=== PATIENT | male | born 1965 | race Caucasian/White ===

== ENCOUNTER 2017-10-31 22:25 | Emergency (ER) | payer SELFPAY ==
[2017-10-31] MEDS ORDERED: NORMAL SALINE 1000 ML 1,000 ML IV ONE (22:46)
[2017-10-31] MEDS ORDERED: GLUCAGON,HUMAN RECOMB 1 MG INJ IM PRN (23:04)
[2017-10-31] MEDS ORDERED: NORMAL SALINE 100 ML with INSULIN REGULAR, HUMAN 100 UNIT IV PRN ×2 (23:04)
[2017-10-31] MEDS ORDERED: DEXTROSE 50%-WATER 25 GM/50 ML DISP.SYRIN IV PRN ×2 (23:04)
[2017-10-31] MEDS ORDERED: DEXTROSE 40% GEL 15 GM TUBE PO PRN ×2 (23:04)
--- NOTE | 2017-10-31 23:16 | ER Document Report ---
ED General - General Chief Complaint: High Blood Sugar Stated Complaint: BLOOD SUGAR ISSUES Time Seen by Provider: 10/31/17 22:44 Notes: Patient is a 52-year-old male who presents with complaint of several weeks of symptoms which include increased urination, increased thirst, blurred vision, dizziness, lightheadedness, weakness. He take medications and does not see primary care doctor. His is at bedside and said that she has been trying to get him to come to the doctor some time because of his symptoms. Today she was concerned that he probably has diabetes. She therefore had him test his blood sugar on her glucometer and his blood sugar read high. Patient denies any recent fevers. No recent illnesses. No other complaints at this time. He did vomit 1 or 2 times. - Related Data Allergies/Adverse Reactions: No Known Allergies Allergy (Unverified 10/31/17 22:26) Past Medical History - Social History Smoking Status: Never Smoker Frequency of alcohol use: None Drug Abuse: Marijuana Family History: Reviewed & Not Pertinent Review of Systems - Review of Systems Notes: My Normal Review Basic REVIEW OF SYSTEMS: CONSTITUTIONAL : Denies fever, chills, or sweats. Denies recent illness. EENT: Denies eye, ear, throat, or mouth pain or symptoms. Denies nasal or sinus congestion. CARDIOVASCULAR: Denies chest pain. RESPIRATORY: Denies cough, cold, or chest congestion. Denies shortness of breath, difficulty breathing, or wheezing. GASTROINTESTINAL: Denies abdominal pain. Few episodes of vomiting. GENITOURINARY: Frequent urination. MUSCULOSKELETAL: Denies neck or back pain or joint pain or swelling. SKIN: Denies rash or skin lesions. NEUROLOGICAL: Denies altered mental status or loss of consciousness. Denies weakness or paralysis or loss of use of either side. Some blurred vision. Denies sensory or motor loss. ALL OTHER SYSTEMS REVIEWED AND NEGATIVE. Physical Exam - Vital signs Vitals: Temp Pulse Resp BP Pulse Ox 98.1 F 95 20 167/85 H 92 10/31/17 22:31 10/31/17 22:31 10/31/17 22:31 10/31/17 22:31 10/31/17 22:31 - Notes Notes: General Appearance: Well nourished, alert, cooperative, no acute distress, no obvious discomfort. Well-appearing. Vitals: reviewed, See vital signs table. Head: no swelling or tenderness to the head Eyes: PERRL, EOMI, Conjuctiva clear Mouth: No decreasd moisture Neck: Supple, no neck tenderness, No thyromegaly Lungs: No wheezing, No rales, No rhonci, No accessory muscle use, good air exchange bilaterally. Heart: Normal rate, Regular rythm, No murmur, no rub Abdomen: Normal BS, soft, No rigidity, No abdominal tenderness, No guarding, no rebound, no abdominal masses, no organomegaly Extremities: strength 5/5 in all extremities, good pulses in all extremities, no swelling or tenderness in the extremities, no edema. Skin: warm, dry, appropriate color, no rash Neuro: speech clear, oriented x 3, normal affect, responds appropriately to questions. Cranial nerves II through XII are intact. Distal sensation intact. Patient moves all extremities without difficulty. Course - Re-evaluation Re-evalutation: 11/01/17 03:36 Patient's blood sugars continue to trend down appropriately. Patient would like to see his blood sugar below 300. Patient refused to stay any longer and says his has to go to work in the morning. Patient's is diabetic and does have an Accu-Chek machine. Patient says that he must leave now. Patient says his blurred vision is resolved and he feels much much improved and better. Informed patient that I will place him on metformin but I strongly encourage him return to ER immediately if he has any fevers, body aches , vomiting, weakness, fatigue, recurrent blurred vision, or if he feels unwell. I informed him that since he is leaving for his blood sugars down below 300 he must return to ER immediately if his blood sugar starts to increase again or if it is not returning to below 350 the next 24 hours. Patient and his agree with plan and he will be discharged home as he has requested. Dictation of this chart was performed using voice recognition software; therefore, there may be some unintended grammatical errors. - Vital Signs Vital signs: Temp Pulse Resp BP Pulse Ox 98.1 F 95 20 144/70 H 92 10/31/17 22:31 10/31/17 22:31 11/01/17 01:03 11/01/17 01:03 11/01/17 01:03 - Laboratory Result Diagrams: 10/31/17 23:08 10/31/17 23:08 Laboratory results interpreted by me: 10/31/17 10/31/17 10/31/17 23:08 23:08 23:08 RDW 14.3 H Sodium 122.3 L Potassium 5.4 H Chloride 84 L BUN 31 H Glucose 998 H* POC Glucose Alkaline Phosphatase 183 H Urine Glucose (UA) >=500 H Urine Ketones TRACE H 11/01/17 02:08 RDW Sodium Potassium Chloride BUN Glucose POC Glucose 545 H* Alkaline Phosphatase Urine Glucose (UA) Urine Ketones Discharge - Discharge Clinical Impression: Hyperglycemia due to type 2 diabetes mellitus Qualifiers: Diabetes mellitus terminal operator insulin use: without terminal operator use Qualified Code(s ): E11.65 - Type 2 diabetes mellitus with hyperglycemia Condition: Good Disposition: HOME, SELF-CARE Additional Instructions: You have Diabetes. It is very important that you take the prescribed medication (metformin) as prescribed. please keep a close eye on your blood sugar . If your blood sugar is above 350 routinely you should return to the ER or your primary care doctor for reevaluation and possible medication adjustment. please return to the ER immediately if you have vomiting, muscle cramps, blurred vision , or feel unwell. Please establish yourself with a primary care doctor to help continue manage your diabetes. The Metformin can on rare cases cause you to become acidotic. If you become acidotic you will feel very weak and tired, have muscle aches, and usually have vomiting. Please return to the ER if you have any of those symptoms. Prescriptions: Metformin HCl [Glucophage 500 mg Tablet] 500 mg PO BID #60 tablet
[2017-10-31 23:28] LABS: APPEARANCE,URINE CLEAR; BILIRUBIN,URINE NEGATIVE (NEGATIVE); COLOR,URINE COLORLESS; GLUCOSE, URINE >=500 mg/dL (NEGATIVE); KETONES,URINE TRACE mg/dL (NEGATIVE); LEUKOCYTE ESTERASE,URINE NEGATIVE (NEGATIVE); NITRITE,URINE NEGATIVE (NEGATIVE); PROTEIN,URINE NEGATIVE (NEGATIVE); URINE SPECIFIC GRAVITY 1.029; UROBILINOGEN,URINE NEGATIVE mg/dL (<2.0)
[2017-10-31 23:31] LABS: ABSOLUTE BASOPHILS # (AUTO) 0.1 10^3/uL (0.0-0.2); ABSOLUTE EOSINOPHILS # (AUTO) 0.1 10^3/uL (0.0-0.6); ABSOLUTE LYMPHOCYTES (AUTO) 2.2 10^3/uL (0.5-4.7); ABSOLUTE MONOCYTES (AUTO) 0.9 10^3/uL (0.1-1.4); ABSOLUTE NEUT (AUTO) 6.1 10^3/uL (1.7-8.2); BASOPHILS % (AUTO) 0.8 % (0-2); EOSINOPHILS % (AUTO) 0.9 % (0-6); HEMATOCRIT 42.8 % (37.9-51.0); HEMOGLOBIN 13.8 g/dL (13.5-17.0); LYMPHOCYTES % (AUTO) 23.8 % (13-45); MEAN CORPUSCULAR HEMOGLOBIN 29.5 pg (27.0-33.4); MEAN CORPUSCULAR HGB CONC 32.2 g/dL (32.0-36.0); MEAN CORPUSCULAR VOLUME 92 fl (80-97); MONOCYTES % (AUTO) 9.9 % (3-13); PLATELET COUNT 275 10^3/uL (150-450); RED BLOOD COUNT 4.67 10^6/uL (4.35-5.55); RED CELL DISTRIBUTION WIDTH 14.3 % (11.5-14.0); SEGMENTED NEUTROPHILS % (AUTO) 64.6 % (42-78); TOTAL CELLS COUNTED % (AUTO) 100 %; WHITE BLOOD COUNT 9.4 10^3/uL (4.0-10.5)
[2017-10-31 23:36] LABS: ALANINE AMINOTRANSFERASE 70 U/L (21-72); ALBUMIN 3.8 g/dL (3.5-5.0); ALKALINE PHOSPHATASE 183 U/L (38-126); ANION GAP 11 (5-19); ASPARTATE AMINO TRANSFERASE 30 U/L (17-59); BILIRUBIN,DIRECT 0.3 mg/dL (0.0-0.4); BILIRUBIN,TOTAL 0.4 mg/dL (0.2-1.3); BLOOD UREA NITROGEN 31 mg/dL (7-20); CALCIUM 9.5 mg/dL (8.4-10.2); CARBON DIOXIDE 27 mmol/L (22-30); CHLORIDE 84 mmol/L (98-107); POTASSIUM 5.4 mmol/L (3.6-5.0); SODIUM 122.3 mmol/L (137-145); TOTAL PROTEIN 6.5 g/dL (6.3-8.2)
[2017-10-31 23:48] LABS: GLUCOSE 998 mg/dL (75-110)
[2017-10-31] MEDS ORDERED: INSULIN REG, HUMAN 100 UNIT/ML 3 ML VIAL (PYX) ONE ×2 (23:53→23:57)
[2017-11-01] MEDS ORDERED: INSULIN REG, HUMAN 100 UNIT/ML 3 ML VIAL (PYX) ONE ×2 (00:24→00:26)
[2017-11-01] MEDS ORDERED: NORMAL SALINE 500 ML IV ONE (01:12)
[2017-11-01] MEDS ORDERED: METFORMIN HCL 500 MG TABLET PO ONE (03:32)
[2017-11-01 04:15] VITALS: BP 134/80
== END 2017-11-01 04:14 | disposition home or self-care (01) ==
LOC: ER 22:25
DX: E11.65 Type 2 diabetes mellitus with hyperglycemia (principal)
CPT/HCPCS: 99285; 96360; 96361; 36415; 82962; 85025; 80053; 81001; J7030; J7040

== ENCOUNTER 2017-11-08 23:38 | Inpatient (IN) | payer SELFPAY ==
--- NOTE | 2017-11-08 23:54 | ER Document Report ---
ED General - General Chief Complaint: Chest Pain Stated Complaint: CHEST PAIN Time Seen by Provider: 11/08/17 23:52 Notes: Patient is 52-year-old male who presents with complaints of chest pain. He says been ongoing since this morning. He says the pain is only when he takes a deep breath and is on the left side of his chest. Is always in the same location. Said some cough. He is a smoker. No history of coronary disease. Patient has no past medical history except for recent diagnosis of diabetes. His diagnosis is actually performed by me just over a week ago. At that time he had a blood sugar of 998 had been having symptoms for 3-4 weeks. He was started metformin. His says that they have arrange for a follow-up appointment primary care doctor but has not yet had it. He has been taking the metformin but his says he is also not been eating appropriately. She says his sugars have been ranging from 300 to 500. No recent fevers or infections. No vomiting. No abdominal pain. No other complaints at this time. No recent trauma to the chest wall. No recent leg pain or leg swelling. No recent surgery. TRAVEL OUTSIDE OF THE [place] IN LAST 30 DAYS: No - Related Data Allergies/Adverse Reactions: No Known Allergies Allergy (Unverified 10/31/17 22:26) Past Medical History - Social History Smoking Status: Never Smoker Frequency of alcohol use: None Drug Abuse: None Family History: Reviewed & Not Pertinent Renal/ Medical History: Denies: Hx Peritoneal Dialysis Past Surgical History: Reports: Hx Orthopedic Surgery Review of Systems - Review of Systems Notes: My Normal Review Basic REVIEW OF SYSTEMS: CONSTITUTIONAL : Denies fever, chills, or sweats. Denies recent illness. EENT: Denies eye, ear, throat, or mouth pain or symptoms. Denies nasal or sinus congestion. CARDIOVASCULAR: Focal chest pain over left side of the chest that is pleuritic. RESPIRATORY: Denies cough, cold, or chest congestion. Denies shortness of breath, difficulty breathing, or wheezing. GASTROINTESTINAL: Denies abdominal pain. Denies nausea, vomiting, or diarrhea. Denies constipation. Last BM: MUSCULOSKELETAL: Denies neck or back pain or joint pain or swelling. SKIN: Denies rash or skin lesions. NEUROLOGICAL: Denies altered mental status or loss of consciousness. Denies headache. Denies weakness or paralysis or loss of use of either side. Denies problems with gait or speech. Denies sensory or motor loss. ALL OTHER SYSTEMS REVIEWED AND NEGATIVE. Physical Exam - Notes Notes: General Appearance: Well nourished, alert, cooperative, no acute distress, no obvious discomfort. Well Appearing. Vitals: reviewed, See vital signs table. Head: no swelling or tenderness to the head Eyes: PERRL, EOMI, Conjuctiva clear Mouth: No decreasd moisture Lungs: No wheezing, No rales, No rhonci, No accessory muscle use, good air exchange bilaterally. Heart: Normal rate, Regular rythm, No murmur, no rub Chest wall: No reproducible pain to palpation of chest wall. On exam patient's pain is reproducible with him taking a deep breath. Abdomen: Normal BS, soft, No rigidity, No abdominal tenderness, No guarding, no rebound, no abdominal masses, no organomegaly Extremities: strength 5/5 in all extremities, good pulses in all extremities, no swelling or tenderness in the extremities, no edema. Skin: warm, dry, appropriate color, no rash Neuro: speech clear, oriented x 3, normal affect, responds appropriately to questions. Course - Re-evaluation Re-evalutation: 11/09/17 03:14 Patient's oxygenation has been fluctuating between 87 and 92% while at rest. He is not in any distress. CT scan does show a cavitary lesion with inflammatory changes consistent with pneumonia versus neoplasm versus Mycobacterium type infection versus septic emboli. The CTA did have a poor contrast bolus timing and therefore he cannot fully rule emboli although I think this is probably less likely. I did speak with hospitalist who agrees with the patient. She requested place him on vancomycin and Zosyn. They will continue the workup to see the exact etiology of the patient's lesion on scan. We discussed the line with the patient and his and they are agreeable to it. Dictation of this chart was performed using voice recognition software; therefore, there may be some unintended grammatical errors. - Laboratory Result Diagrams: 11/09/17 00:00 11/09/17 00:00 Laboratory results interpreted by me: 11/09/17 11/09/17 11/09/17 00:00 00:00 02:39 D-Dimer 0.84 H Sodium 131.8 L Potassium 5.1 H Chloride 95 L BUN 23 H Glucose 505 H* POC Glucose 420 H* Alkaline Phosphatase 129 H - EKG Interpretation by Me Additional EKG results interpreted by me: 11/08/17 23:54 EKG is reviewed and interpreted by me. EKG shows normal sinus rhythm with rate of [address] segment elevation or depression. No ischemic T-wave inversions. PA interval, QRS duration, QTc intervals are within normal range. No old EKG available for comparison.
[2017-11-09] MEDS ORDERED: ACETAMINOPHEN 325 MG TABLET PO ONE (00:02)
[2017-11-09] MEDS ORDERED: NORMAL SALINE 1000 ML 1,000 ML IV ONE (00:02)
[2017-11-09 00:18] LABS: ABSOLUTE BASOPHILS # (AUTO) 0.1 10^3/uL (0.0-0.2); ABSOLUTE EOSINOPHILS # (AUTO) 0.2 10^3/uL (0.0-0.6); RED BLOOD COUNT 4.83 10^6/uL (4.35-5.55)
[2017-11-09 00:23] LABS: MEAN CORPUSCULAR VOLUME 88 fl (80-97)
--- NOTE | 2017-11-09 00:25 | RADIOLOGY REPORT (SQ) ---
EXAM DESCRIPTION: CHEST PA/LAT CLINICAL HISTORY: chest pain COMPARISON: None. FINDINGS: Frontal and lateral views of the chest. The cardiomediastinal silhouette has normal size and contour. Bilateral perihilar peribronchial interstitial thickening. Low lung volumes. Leads overlie the chest. No displaced rib fractures identified. Upper abdominal soft tissues are unremarkable. IMPRESSION: 1. Bilateral perihilar peribronchial interstitial thickening. This could be seen with bronchopneumonia, viral bronchitis/bronchiolitis, or reactive airways disease.
[2017-11-09 00:32] LABS: ABSOLUTE LYMPHOCYTES (AUTO) 2.8 10^3/uL (0.5-4.7); ABSOLUTE NEUT (AUTO) 5.3 10^3/uL (1.7-8.2); BASOPHILS % (AUTO) 1.2 % (0-2); EOSINOPHILS % (AUTO) 2.1 % (0-6); HEMATOCRIT 42.6 % (37.9-51.0); HEMOGLOBIN 14.1 g/dL (13.5-17.0); LYMPHOCYTES % (AUTO) 29.7 % (13-45); MEAN CORPUSCULAR HEMOGLOBIN 29.1 pg (27.0-33.4); MONOCYTES % (AUTO) 10.5 % (3-13); PLATELET COUNT 324 10^3/uL (150-450); SEGMENTED NEUTROPHILS % (AUTO) 56.5 % (42-78); TOTAL CELLS COUNTED % (AUTO) 100 %; WHITE BLOOD COUNT 9.4 10^3/uL (4.0-10.5)
[2017-11-09 00:41] LABS: ALANINE AMINOTRANSFERASE 62 U/L (21-72); ALBUMIN 3.7 g/dL (3.5-5.0); ALKALINE PHOSPHATASE 129 U/L (38-126); ANION GAP 11 (5-19); ASPARTATE AMINO TRANSFERASE 32 U/L (17-59); BILIRUBIN,DIRECT 0.4 mg/dL (0.0-0.4); BILIRUBIN,TOTAL 0.4 mg/dL (0.2-1.3); BLOOD UREA NITROGEN 23 mg/dL (7-20); CALCIUM 9.6 mg/dL (8.4-10.2); CARBON DIOXIDE 26 mmol/L (22-30); CHLORIDE 95 mmol/L (98-107); POTASSIUM 5.1 mmol/L (3.6-5.0); SODIUM 131.8 mmol/L (137-145); TOTAL PROTEIN 6.9 g/dL (6.3-8.2)
[2017-11-09 00:54] LABS: GLUCOSE 505 mg/dL (75-110)
[2017-11-09] MEDS ORDERED: INSULIN REG, HUMAN 100 UNIT/ML 3 ML VIAL (PYX) SUBCUT ONE (00:54)
[2017-11-09] MEDS ORDERED: INSULIN GLARGINE,HUM.REC.ANLOG 1,000 UNIT/10 ML UNIT SUBCUT ONE ×2 (00:54→07:45)
--- NOTE | 2017-11-09 02:56 | RADIOLOGY REPORT (SQ) ---
EXAM DESCRIPTION: CTA of the chest per PE protocol with contrast. CLINICAL HISTORY: chest pain COMPARISON: None Available. TECHNIQUE: CTA of the chest obtained following the uncomplicated intravenous administration of 90.1 mL Isovue-370. 3-D/MIP reformatted images of the chest available for evaluation. FINDINGS: Chest: Mediastinal windows demonstrate an adequate contrast bolus. No large pulmonary embolus identified. Suboptimal evaluation of the lobar, segmental, and subsegmental pulmonary arterial branches due to contrast bolus timing. Visualized thyroid gland is unremarkable. Great vessels have normal anatomic configuration. No cardiomegaly, coronary artery atherosclerosis, or pericardial effusion. No abnormalities of the esophagus. Enlarged left hilar and AP window lymph nodes. Lung windows demonstrate left lingular consolidation with cavitary lesion. Cavitary lesion measures 3.0 x 3.3 cm. Bilateral bronchial thickening. No abnormalities of the visualized trachea or airways. No pneumothorax or pleural effusion. Limited images of the upper abdomen demonstrate no abnormalities of the visualized spleen, pancreas, adrenal glands, or kidneys. Diffusely decreased density of the liver. Calcified gallstones. No destructive osseous lesions. DLP: 1393.20 mGycm IMPRESSION: 1. No definite pulmonary embolus identified. Suboptimal evaluation due to contrast bolus timing. 2. Region of lingular consolidation with a 3.3 cm cavitary lesion. Differential considerations include necrotizing pneumonia, inflammatory cavitary lesion, septic embolus, mycobacterial infection, and neoplasm. CT of the chest in 3 months recommended to confirm resolution following treatment. 3. Hepatic steatosis. 4. Cholelithiasis. This exam was performed according to our departmental dose-optimization program, which includes automated exposure control, adjustment of the mA and/or kV according to patient size and/or use of iterative reconstruction technique.
[2017-11-09] MEDS ORDERED: LEVOFLOXACIN 750 MG/D5W RTU 750 MG/150 ML RTUPB IV ONE (03:10)
[2017-11-09] MEDS ORDERED: VANCOMYCIN HCL INJ 1000 MG VIAL IV ONE (03:12)
[2017-11-09] MEDS ORDERED: PIPERACILLIN/TAZOBACTAM 3.375 GM VIAL IV ONE (03:13)
[2017-11-09] MEDS ORDERED: ALBUTEROL SULFATE 0.083% NEB 2.5 MG/3 ML AMPUL NEB PRN (03:26)
[2017-11-09] MEDS ORDERED: PROMETHAZINE HCL INJ 25 MG/1 ML VIAL IV PRN (03:26)
[2017-11-09] MEDS ORDERED: ACETAMINOPHEN 325 MG TABLET PO PRN (03:26)
[2017-11-09] MEDS ORDERED: DEXTROSE 50%-WATER 25 GM/50 ML DISP.SYRIN IV PRN ×2 (03:36)
[2017-11-09] MEDS ORDERED: GLUCAGON,HUMAN RECOMB 1 MG INJ IM PRN (03:36)
[2017-11-09] MEDS ORDERED: DEXTROSE 40% GEL 15 GM TUBE PO PRN ×2 (03:36)
[2017-11-09] MEDS ORDERED: VANCOMYCIN HCL 0 MG in DEXTROSE 5%-WATER 250 ML IV NR (03:45)
[2017-11-09] MEDS ORDERED: PIPERACILLIN/TAZOBACTAM 3.375 GM VIAL IV PRN (03:46)
[2017-11-09] MEDS ORDERED: VANCOMYCIN HCL INJ 1000 MG VIAL IV PRN (03:50)
[2017-11-09] MEDS ORDERED: VANCOMYCIN HCL 1,750 MG in DEXTROSE 5%-WATER 500 ML IV ONE (04:00)
[2017-11-09] MEDS: HYDROCODONE/ACETAMINOPHEN 5-325 MG TABLET PO PRN ×5 (04:33→23:04)
--- NOTE | 2017-11-09 04:47 | PDOC H&P ---
History of Present Illness Patient complains of: Severe left-sided chest pain since 8 AM. History of Present Illness: CLEVELAND ROBBINS is a 52 year old male smoker with recent diagnosis of type 2 diabetes mellitus and probably undiagnosed COPD and LUIS was admitted with above- mentioned complaints. The patient describes his chest pain as constant, localized to the anterior chest wall, 7/10 intensity aggravated by deep breathing. It was somewhat relieved by 10 mg baclofen x1 given by his . He denies any fever, chills, sore throat or runny nose. He said that he has a smoker's cough with some sputum intermittently but no hemoptysis. His and son had URI recently but they never tested positive for the flu. He recently traveled to [place] but he denies any immediate contact with anybody with TB or having been recently incarcerated and working in any healthcare system. But his works in [employer]. He has been refusing to get vaccinated for the flu. The patient also denies any nausea, vomiting, abdominal pain, diarrhea or constipation or any urinary symptoms or focal weakness. In the ED, he was afebrile and hemodynamically stable. His WBC was 9.4 but his d-dimer was 0.84 and his troponin was 0.019. His blood glucose was 505 with anion gap of 11. A chest x-ray was done which showed possible bronchopneumonia and/or viral bronchitis. He had a CAT scan angiogram of the chest which was suboptimal but did not show any definite PE. He had 3.3 cm cavitary lesion in the lingula. He received 1 g IV vancomycin x1 and 3.375 mg IV Zosyn 1 in addition to 12 units regular insulin and 20 units Humolog subQ 1. Past Medical History Endocrine Medical History: Reports: Diabetes Mellitus Type 2 Past Surgical History Past Surgical History: Reports: Other - oral surgery. Social History Smoking Status: Never Smoker Cigarettes Packs Per Day: 1 - Than a pack a day for 30 years. Frequency of Alcohol Use: Occasional - beer. Hx Recreational Drug Use: No - Advance Directive Resuscitation Status: Full Code Family History Parental Family History Reviewed: Yes - No cardiac disease or diabetes in the family. Children Family History Reviewed: No Sibling(s) Family History Reviewed.: Yes Medication/Allergy Home Medications: Metformin HCl [Glucophage 500 mg Tablet] 500 mg PO BID #60 tablet 11/01/17 Allergies/Adverse Reactions: No Known Allergies Allergy (Unverified 10/31/17 22:26) Review of Systems ROS unobtainable: Other - Pertinent positives and negatives as detailed in the HPI. Physical Exam Vital Signs: Intake & Output 11/07/17 11/08/17 11/09/17 06:59 06:59 06:59 Weight 129.2 kg General appearance: PRESENT: no acute distress, well-developed, well-nourished Head exam: PRESENT: atraumatic, normocephalic Eye exam: PRESENT: conjunctiva pink, PERRLA. ABSENT: scleral icterus Mouth exam: PRESENT: neck supple. ABSENT: moist Neck exam: PRESENT: full ROM. ABSENT: JVD Respiratory exam: PRESENT: decreased breath sounds - Left > right. ABSENT: rales, rhonchi, wheezes Cardiovascular exam: PRESENT: RRR, +S1, +S2 Pulses: PRESENT: normal dorsalis pedis pul GI/Abdominal exam: PRESENT: normal bowel sounds, soft. ABSENT: distended, rebound, tenderness Rectal exam: PRESENT: deferred Extremities exam: PRESENT: full ROM Musculoskeletal exam: PRESENT: full ROM Neurological exam: PRESENT: alert, altered, awake, CN II-XII grossly intact. ABSENT: motor sensory deficit Skin exam: PRESENT: dry, warm. ABSENT: erythema, petechiae, rash Results Laboratory Results: 11/09/17 00:00 11/09/17 00:00 11/09/17 11/09/17 00:00 00:00 WBC 9.4 RBC 4.83 Hgb 14.1 Hct 42.6 MCV 88 D MCH 29.1 MCHC 33.0 RDW 14.0 Plt Count 324 Seg Neutrophils % 56.5 Lymphocytes % 29.7 Monocytes % 10.5 Eosinophils % 2.1 Basophils % 1.2 Absolute Neutrophils 5.3 Absolute Lymphocytes 2.8 Absolute Monocytes 1.0 Absolute Eosinophils 0.2 Absolute Basophils 0.1 Sodium 131.8 L Potassium 5.1 H Chloride 95 L Carbon Dioxide 26 Anion Gap 11 BUN 23 H Creatinine 0.69 Est GFR ( Amer) > 60 Est GFR (Non-Af Amer) > 60 Glucose 505 H* Calcium 9.6 Total Bilirubin 0.4 AST 32 ALT 62 Alkaline Phosphatase 129 H Total Protein 6.9 Albumin 3.7 11/09/17 00:00 Troponin I 0.019 EKG Comments: 12-lead EKG, sinus rhythm, ventricular rate 90, [place] 0, no acute changes. Impressions: Chest X-Ray 11/09/17 00:02 IMPRESSION: 1. Bilateral perihilar peribronchial interstitial thickening. This could be seen with bronchopneumonia, viral bronchitis/bronchiolitis, or reactive airways disease. Chest/Abdomen CTA 11/09/17 01:28 IMPRESSION: 1. No definite pulmonary embolus identified. Suboptimal evaluation due to contrast bolus timing. 2. Region of lingular consolidation with a 3.3 cm cavitary lesion. Differential considerations include necrotizing pneumonia, inflammatory cavitary lesion, septic embolus, mycobacterial infection, and neoplasm. CT of the chest in 3 months recommended to confirm resolution following treatment. 3. Hepatic steatosis. 4. Cholelithiasis. This exam was performed according to our departmental dose-optimization program, which includes automated exposure control, adjustment of the mA and/or kV according to patient size and/or use of iterative reconstruction technique. Assessment & Plan - Diagnosis (1) Cavitary lesion of lung Is this a current diagnosis for this admission?: Yes Plan: 3.03.3 cm with left lingular consolidation on CAT scan angiogram of the chest, secondary to possible necrotizing pneumonia and/or inflammatory cavitary lesion and/or TB and/or neoplasm or septic embolus per radiology report. Will keep him on airborne isolation and check QuantiFERON. We will continue Vancomycin and Zosyn for now and and add Tamiflu. We will follow-up blood cultures and lactic acid. Pulmonary/ID may need to be consulted for further management and treatment. (2) Hyperosmolar non-ketotic state in patient with type 2 diabetes mellitus Is this a current diagnosis for this admission?: Yes Plan: He was most recently diagnosed on 11/01/2017 when he presented to the ED here. He was started on metformin. Will check A1c and start Humalog sliding scale. He may need to be on insulin as outpatient. (3) Hypoxia Is this a current diagnosis for this admission?: Yes Plan: With oxygen saturation noted to be in the upper 80s, likely secondary to undiagnosed COPD given extensive smoking history and/or acute illness. We will continue albuterol nebs as needed. Further evaluation with PFTs can be done as outpatient once acute illness resolved. (4) LUIS (obstructive sleep apnea) Is this a current diagnosis for this admission?: Yes Plan: Most likely given the symptoms described by his . Further evaluation can be done as outpatient. (5) Smoker Is this a current diagnosis for this admission?: Yes Plan: More than a pack a day for 30 years. He does not seem motivated to quit. Nicotine patch if agreeable. - Time Time Spent: Greater than 70 Minutes Anticipated discharge: Home - Inpatient Certification Based on my medical assessment, after consideration of the patient's comorbidities, presenting symptoms, or acuity I expect that the services needed warrant INPATIENT care.: Yes I certify that my determination is in accordance with my understanding of Medicare's requirements for reasonable and necessary INPATIENT services [42 CFR 412.3e].: Yes
[2017-11-09] MEDS ORDERED: PIPERACILLIN SODIUM/TAZOBACTAM 3.375 GM in NORMAL SALINE 100 ML IV SCH (06:00)
[2017-11-09] MEDS ORDERED: INSULIN GLARGINE,HUM.REC.ANLOG 300 UNIT/3 ML INSULN.PEN SUBCUT ONE (07:00)
[2017-11-09] MEDS: INSULIN LISPRO 100 UNIT/ML 3 ML VIAL SUBCUT PRN ×4 (07:05→22:24)
[2017-11-09] MEDS: HEPARIN SOD (PORCINE) 5,000 UNIT/ML 1 ML SYRINGE SUBCUT SCH ×3 (09:02→22:24)
[2017-11-09] MEDS: GLIPIZIDE 10 MG TABLET PO SCH (09:03)
[2017-11-09] MEDS: PIPERACILLIN SODIUM/TAZOBACTAM 3.375 GM in NORMAL SALINE 100 ML IV SCH ×3 (09:03→22:22)
--- NOTE | 2017-11-09 09:09 | EKG REPORT ---
SEVERITY:- ABNORMAL ECG - SINUS RHYTHM PROBABLE LEFT ATRIAL ABNORMALITY INCOMPLETE RIGHT BUNDLE BRANCH BLOCK : Confirmed by: Blaze Godinez 09-Nov-2017 09:09:20
[2017-11-09] MEDS ORDERED: TUBERCULIN,PURIF.PROT.DERIV. 5 TU/0.1 ML TEST 1 ML VIAL ID ONE (10:00)
[2017-11-09] MEDS: OSELTAMIVIR PHOSPHATE 75 MG CAPSULE PO SCH ×2 (10:39→17:18)
--- NOTE | 2017-11-09 12:11 | PDOC PROGRESS REPORT ---
Subjective Progress Note for:: 11/09/17 Subjective:: Wants to go home. Reason For Visit: PNEUMONIA, CAVITARY LESION IN [place] Physical Exam Vital Signs: Temp Pulse Resp BP Pulse Ox 97.5 F 90 18 136/70 H 92 11/09/17 11:10 11/09/17 11:10 11/09/17 11:10 11/09/17 11:10 11/09/17 11:10 Intake & Output 11/08/17 11/09/17 11/10/17 06:59 06:59 06:59 Intake Total 118 300 Output Total 0 Balance 118 300 Weight 129.2 kg General appearance: PRESENT: no acute distress, morbidly obese Head exam: PRESENT: atraumatic, normocephalic Eye exam: PRESENT: EOMI, PERRLA Respiratory exam: PRESENT: clear to auscultation reji. ABSENT: rales, rhonchi, wheezes Cardiovascular exam: PRESENT: RRR. ABSENT: diastolic murmur, rubs, systolic murmur Musculoskeletal exam: PRESENT: ambulatory Neurological exam: PRESENT: alert, awake, oriented to person, oriented to place , oriented to time, oriented to situation, CN II-XII grossly intact. ABSENT: motor sensory deficit Skin exam: PRESENT: dry, intact, warm. ABSENT: cyanosis, rash Results Laboratory Results: 11/09/17 05:38 Lactic Acid 1.1 Impressions: Chest X-Ray 11/09/17 00:02 IMPRESSION: 1. Bilateral perihilar peribronchial interstitial thickening. This could be seen with bronchopneumonia, viral bronchitis/bronchiolitis, or reactive airways disease. Chest/Abdomen CTA 11/09/17 01:28 IMPRESSION: 1. No definite pulmonary embolus identified. Suboptimal evaluation due to contrast bolus timing. 2. Region of lingular consolidation with a 3.3 cm cavitary lesion. Differential considerations include necrotizing pneumonia, inflammatory cavitary lesion, septic embolus, mycobacterial infection, and neoplasm. CT of the chest in 3 months recommended to confirm resolution following treatment. 3. Hepatic steatosis. 4. Cholelithiasis. This exam was performed according to our departmental dose-optimization program, which includes automated exposure control, adjustment of the mA and/or kV according to patient size and/or use of iterative reconstruction technique. Assessment & Plan - Diagnosis (1) Pneumonia Qualifiers: Pneumonia type: due to unspecified organism Laterality: left Lung location: lower lobe of lung Qualified Code(s): J18.1 - Lobar pneumonia, unspecified organism Is this a current diagnosis for this admission?: Yes Plan: Continue antibiotics. (2) Cavitary lesion of lung Is this a current diagnosis for this admission?: Yes Plan: Quantiferon Gold TB pending. I discussed with the lab. I will take about 5 days before the results will be available. The lab estimated that there is also be ready by next November 15. I have ordered a PPD. He has remained in the hospital for 48 hours before it will be read. (3) Type 2 diabetes mellitus Qualifiers: Diabetes mellitus care home insulin use: without oysterman use Diabetes mellitus complication status: without complication Qualified Code(s): E11.9 - Type 2 diabetes mellitus without complications Is this a current diagnosis for this admission?: Yes Plan: Start glipizide 10 mg daily, and continue metformin 500 mg twice daily. Continue sliding scale for insulin. 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 (4) Smoker Is this a current diagnosis for this admission?: Yes Plan: Encouraged to quit. - Time Time Spent with patient: 25-34 minutes Smoking Cessation Education: 3 to 10 minutes Medications reviewed and adjusted accordingly: Yes Anticipated discharge: Home - Inpatient Certification Based on my medical assessment, after consideration of the patient's comorbidities, presenting symptoms, or acuity I expect that the services needed warrant INPATIENT care.: Yes I certify that my determination is in accordance with my understanding of Medicare's requirements for reasonable and necessary INPATIENT services [42 CFR 412.3e].: Yes Medical Necessity: Significant Comorbidiites Make Outpatient Treatment Too Risky
[2017-11-09] MEDS ORDERED: VANCOMYCIN HCL 1,000 MG in DEXTROSE 5%-WATER 250 ML IV SCH (14:00)
[2017-11-09] MEDS: VANCOMYCIN HCL 1,500 MG in DEXTROSE 5%-WATER 250 ML IV SCH ×2 (15:16→20:03)
[2017-11-09] MEDS: METFORMIN HCL 500 MG TABLET PO SCH (15:26)
[2017-11-10] MEDS: VANCOMYCIN HCL 1,500 MG in DEXTROSE 5%-WATER 250 ML IV SCH ×4 (01:30→22:27)
[2017-11-10] MEDS: PIPERACILLIN SODIUM/TAZOBACTAM 3.375 GM in NORMAL SALINE 100 ML IV SCH ×4 (03:25→22:29)
[2017-11-10] MEDS: HYDROCODONE/ACETAMINOPHEN 5-325 MG TABLET PO PRN ×4 (03:54→22:47)
[2017-11-10 05:07] LABS: HEMATOCRIT 41.3 % (37.9-51.0); HEMOGLOBIN 13.9 g/dL (13.5-17.0); MEAN CORPUSCULAR HEMOGLOBIN 29.3 pg (27.0-33.4); MEAN CORPUSCULAR HGB CONC 33.6 g/dL (32.0-36.0); MEAN CORPUSCULAR VOLUME 87 fl (80-97); PLATELET COUNT 235 10^3/uL (150-450); RED BLOOD COUNT 4.73 10^6/uL (4.35-5.55); RED CELL DISTRIBUTION WIDTH 14.3 % (11.5-14.0); WHITE BLOOD COUNT 8.4 10^3/uL (4.0-10.5)
[2017-11-10 05:37] LABS: ANION GAP 10 (5-19); BLOOD UREA NITROGEN 16 mg/dL (7-20); CALCIUM 9.1 mg/dL (8.4-10.2); CARBON DIOXIDE 27 mmol/L (22-30); CHLORIDE 98 mmol/L (98-107); GLUCOSE 286 mg/dL (75-110); POTASSIUM 4.3 mmol/L (3.6-5.0); SODIUM 135.1 mmol/L (137-145)
[2017-11-10] MEDS: HEPARIN SOD (PORCINE) 5,000 UNIT/ML 1 ML SYRINGE SUBCUT SCH ×3 (06:18→22:47)
[2017-11-10] MEDS: INSULIN LISPRO 100 UNIT/ML 3 ML VIAL SUBCUT PRN ×3 (07:35→17:34)
[2017-11-10] MEDS: METFORMIN HCL 500 MG TABLET PO SCH ×2 (07:42→15:22)
[2017-11-10] MEDS: GLIPIZIDE 10 MG TABLET PO SCH (08:37)
[2017-11-10] MEDS: LEVOFLOXACIN 750 MG TABLET PO SCH (10:17)
[2017-11-10] MEDS: OSELTAMIVIR PHOSPHATE 75 MG CAPSULE PO SCH (10:23)
--- NOTE | 2017-11-10 11:32 | PDOC PROGRESS REPORT ---
Subjective Progress Note for:: 11/10/17 Subjective:: Patient is very frustrated. He has not been able to sleep in the bed. He is tired of being isolated in a room. He would like to go home and follow-up outpatient. Otherwise, he states his pain is getting better, his shortness of breath has resolved. He still has a productive cough. Reason For Visit: PNEUMONIA, CAVITARY LESION IN [place] Physical Exam Vital Signs: Temp Pulse Resp BP Pulse Ox 98.1 F 75 16 132/73 H 93 11/10/17 07:25 11/10/17 08:00 11/10/17 08:00 11/10/17 07:25 11/10/17 08:00 Intake & Output 11/09/17 11/10/17 11/11/17 06:59 06:59 06:59 Intake Total 118 2470 Output Total 0 Balance 118 2470 Weight 129.2 kg General appearance: PRESENT: no acute distress, cooperative, morbidly obese Head exam: PRESENT: atraumatic, normocephalic Mouth exam: PRESENT: moist, tongue midline Throat exam: ABSENT: post pharyngeal erythema, tonsillar erythema Neck exam: ABSENT: carotid bruit, JVD, lymphadenopathy, thyromegaly Respiratory exam: PRESENT: clear to auscultation reji. ABSENT: rales, rhonchi, wheezes Cardiovascular exam: PRESENT: RRR. ABSENT: diastolic murmur, rubs, systolic murmur Pulses: PRESENT: normal dorsalis pedis pul Vascular exam: PRESENT: normal capillary refill GI/Abdominal exam: PRESENT: normal bowel sounds, soft. ABSENT: distended, guarding, mass, organolmegaly, rebound, tenderness Extremities exam: PRESENT: full ROM, pedal edema - 2+ bilaterally, states he does get swellign at home that gets better when he lays down and elevates his legs. ABSENT: calf tenderness Neurological exam: PRESENT: alert, awake, oriented to person, oriented to place , oriented to time, oriented to situation, CN II-XII grossly intact. ABSENT: motor sensory deficit Skin exam: PRESENT: dry, intact, warm. ABSENT: cyanosis, rash Results Laboratory Results: 11/10/17 03:58 11/10/17 03:58 11/10/17 11/10/17 03:58 03:58 WBC 8.4 RBC 4.73 Hgb 13.9 Hct 41.3 MCV 87 MCH 29.3 MCHC 33.6 RDW 14.3 H Plt Count 235 Sodium 135.1 L Potassium 4.3 Chloride 98 Carbon Dioxide 27 Anion Gap 10 BUN 16 Creatinine 0.50 L Est GFR ( Amer) > 60 Est GFR (Non-Af Amer) > 60 Glucose 286 H Calcium 9.1 11/09/17 11/10/17 17:51 08:16 Troponin I < 0.012 < 0.012 Impressions: Chest X-Ray 11/09/17 00:02 IMPRESSION: 1. Bilateral perihilar peribronchial interstitial thickening. This could be seen with bronchopneumonia, viral bronchitis/bronchiolitis, or reactive airways disease. Chest/Abdomen CTA 11/09/17 01:28 IMPRESSION: 1. No definite pulmonary embolus identified. Suboptimal evaluation due to contrast bolus timing. 2. Region of lingular consolidation with a 3.3 cm cavitary lesion. Differential considerations include necrotizing pneumonia, inflammatory cavitary lesion, septic embolus, mycobacterial infection, and neoplasm. CT of the chest in 3 months recommended to confirm resolution following treatment. 3. Hepatic steatosis. 4. Cholelithiasis. This exam was performed according to our departmental dose-optimization program, which includes automated exposure control, adjustment of the mA and/or kV according to patient size and/or use of iterative reconstruction technique. Assessment & Plan - Diagnosis (1) Cavitary lesion of lung Is this a current diagnosis for this admission?: Yes Plan: awaiting PPD which will be read tomorrow morning. Continue current antibiotics until PPD is read and further decisions/follow-up can be decided. (2) Pneumonia Qualifiers: Pneumonia type: due to unspecified organism Laterality: left Lung location: lower lobe of lung Qualified Code(s): J18.1 - Lobar pneumonia, unspecified organism Is this a current diagnosis for this admission?: Yes Plan: continue current antibiotics (3) Smoker Is this a current diagnosis for this admission?: Yes Plan: discussed cessation with the patient. presented with various options. 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 Just started on metformin and glipizide. Will need close f/u with PCP. Discussed his diet and exercise at length with him. Most likely will need insulin to get DM under control. BS are improved since starting metformin and glipizide but still elevated even with SSI. Will continue these meds for now but need to have discussion with patient about insulin and diabetes care - Time Time Spent with patient: 15-24 minutes Smoking Cessation Education: 3 to 10 minutes Medications reviewed and adjusted accordingly: Yes Anticipated discharge: Home Within: within 24 hours - Inpatient Certification Based on my medical assessment, after consideration of the patient's comorbidities, presenting symptoms, or acuity I expect that the services needed warrant INPATIENT care.: Yes I certify that my determination is in accordance with my understanding of Medicare's requirements for reasonable and necessary INPATIENT services [42 CFR 412.3e].: Yes Medical Necessity: Need for IV Antibiotics
[2017-11-10 15:17] LABS: VANCOMYCIN,TROUGH 8.4 ug/mL (5.0-20.0)
[2017-11-10 21:19] VITALS: BP 126/70
[2017-11-11] MEDS: VANCOMYCIN HCL 1,500 MG in DEXTROSE 5%-WATER 250 ML IV SCH ×2 (03:25→09:19)
[2017-11-11] MEDS: PIPERACILLIN SODIUM/TAZOBACTAM 3.375 GM in NORMAL SALINE 100 ML IV SCH ×2 (03:26→10:54)
[2017-11-11] MEDS: HEPARIN SOD (PORCINE) 5,000 UNIT/ML 1 ML SYRINGE SUBCUT SCH (06:09)
[2017-11-11] MEDS: LEVOFLOXACIN 750 MG TABLET PO SCH (09:18)
[2017-11-11] MEDS: GLIPIZIDE 10 MG TABLET PO SCH (09:19)
[2017-11-11] MEDS: METFORMIN HCL 500 MG TABLET PO SCH (09:19)
[2017-11-11 10:04] LABS: VANCOMYCIN,TROUGH 17.1 ug/mL (5.0-20.0)
--- NOTE | 2017-11-11 14:32 | Progress Note ---
Provider Note Provider Note: ID Consult Note Contacted by Pharmacy about Mr Parks, a 52 yo man with 30 pack year smoking history who p/w pleuritic chest pain. Per his H&P, he had no fever, weight loss , or cough. 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 He He has had no objective fever. WBC count has been normal. He had a CXR and then CT scan of the chest. He has a ~3 cm lingular mass-like lesion with a small cavity. PPD placed on 11/09 has been negative. He has been empirically treated for pneumonia with vancomycin/Zosyn/ Levaquin. Impression/Recommendations Mass-like lung lesion in a smoker - Although infection is in the differential, this does not have the typical radiographic appearance of a pneumonia, including TB. The patient does not have fever or leukocytosis. While a negative PPD does not rule out TB, it makes this less likely, and he does lack several known risk factors. With the patient's smoking history, malignancy should also be considered. - Recommend discontinuing antibiotics and consulting Pulmonary to consider bronchoscopy to facilitate establishing a diagnosis. Jose Felix MD, pager [phone]
--- NOTE | 2017-11-11 15:56 | PDOC DISCHARGE SUMMARY ---
General - Admit/Disc Date/PCP Admission Date/Primary Care Provider: 11/09/17 03:25 Discharge Date: 11/11/17 - Discharge Diagnosis (2) Cavitary lesion of lung Is this a current diagnosis for this admission?: Yes (4) Pneumonia Is this a current diagnosis for this admission?: Yes (5) Smoker Is this a current diagnosis for this admission?: Yes - Additional Information Resuscitation Status: Full Code Discharge Diet: Diabetic Discharge Activity: Activity As Tolerated Prescriptions: Hydrocodone/Acetaminophen [[place] 5-325 mg Tablet] 1 tab PO Q6HP PRN #30 tablet PRN Reason: Glipizide [Glucotrol 10 mg Tablet] 10 mg PO DAILY@0900 30 Days #30 tablet Levofloxacin 750 mg PO DAILY 5 Days #5 tablet Home Medications: Glipizide [Glucotrol 10 mg Tablet] 10 mg PO DAILY@0900 30 Days #30 tablet Hydrocodone/Acetaminophen [[place] 5-325 mg Tablet] 1 tab PO Q6HP PRN #30 tablet 11/09/17 Levofloxacin 750 mg PO DAILY 5 Days #5 tablet 11/09/17 Metformin HCl [Glucophage 500 mg Tablet] 500 mg PO BID 11/09/17 History of Present Illness Patient complains of: Difficulty breathing and shortness of breath History of Present Illness: CLEVELAND ROBBINS is a 52 year old male Hospital Course Hospital Course: Patient was admitted with possible pneumonia. CT scan showed a cavitary lesion with the differentials including TB, possible mass as well as postobstructive pneumonia. Patient had a PPD placed which was read today at 48 hours and which was negative. Fortunately there was no sputum culture done as of yet and patient refused to stay for sputum cultures to be collected we did make to collect one today prior to his discharge but patient will now wait for any result signing out AGAINST MEDICAL ADVICE as I feel he is not stable to be discharged. I did consult the explosive operator supervisor to discuss this case with him and he did suggest that patient should have the sputum culture and AFB smear done and I will be happy to follow him as outpatient but patient refused to stay for sputum cultures and smear Physical Exam Vital Signs: Temp Pulse Resp BP Pulse Ox 97.5 F 85 19 126/70 H 94 11/10/17 19:46 11/11/17 07:00 11/10/17 19:46 11/10/17 19:46 11/10/17 19:46 Intake & Output 11/10/17 11/11/17 11/12/17 06:59 06:59 06:59 Intake Total 2470 2165 Output Total 700 Balance 2470 1465 General appearance: PRESENT: no acute distress Respiratory exam: PRESENT: clear to auscultation reji. ABSENT: rales, rhonchi, wheezes Cardiovascular exam: PRESENT: RRR. ABSENT: diastolic murmur, rubs, systolic murmur Pulses: PRESENT: normal dorsalis pedis pul GI/Abdominal exam: PRESENT: ascites Rectal exam: PRESENT: deferred Neurological exam: PRESENT: alert, awake, oriented to person, oriented to place , oriented to time, oriented to situation, CN II-XII grossly intact. ABSENT: motor sensory deficit Results Laboratory Results: 11/10/17 03:58 11/10/17 03:58 11/09/17 11/10/17 17:51 08:16 Troponin I < 0.012 < 0.012 Impressions: Chest X-Ray 11/09/17 00:02 IMPRESSION: 1. Bilateral perihilar peribronchial interstitial thickening. This could be seen with bronchopneumonia, viral bronchitis/bronchiolitis, or reactive airways disease. Chest/Abdomen CTA 11/09/17 01:28 IMPRESSION: 1. No definite pulmonary embolus identified. Suboptimal evaluation due to contrast bolus timing. 2. Region of lingular consolidation with a 3.3 cm cavitary lesion. Differential considerations include necrotizing pneumonia, inflammatory cavitary lesion, septic embolus, mycobacterial infection, and neoplasm. CT of the chest in 3 months recommended to confirm resolution following treatment. 3. Hepatic steatosis. 4. Cholelithiasis. This exam was performed according to our departmental dose-optimization program, which includes automated exposure control, adjustment of the mA and/or kV according to patient size and/or use of iterative reconstruction technique. Qualifiers - * PATEINT BEING DISCHARGED WITH ANY OF THE FOLLOWING DIAGNOSIS?: No Plan Time Spent: Less than 30 Minutes - Patient signed out AGAINST MEDICAL ADVICE
== END 2017-11-11 12:04 | disposition left against medical advice (07) | DRG 193 ==
LOC: ER 23:38 → EH 11-09 03:25 → 3N 11-09 05:00
PROVIDERS: ADMIT Internal Medicine Geriatric Medicine; ATTEND Internal Medicine Geriatric Medicine
PROC: 3E0234Z Introduction of Serum, Toxoid and Vaccine into Muscle, Percutaneous Approach (ICD-10-PCS; principal; 2017-11-09)
PROC: 3E0F73Z Introduction of Anti-inflammatory into Respiratory Tract, Via Natural or Artificial Opening (ICD-10-PCS; 2017-11-09)
DX: J18.9 Pneumonia, unspecified organism (principal); E11.00 Type 2 diabetes mellitus with hyperosmolarity without nonketotic hyperglycemic-hyperosmolar coma (NKHHC); R91.8 Other nonspecific abnormal finding of lung field; G47.33 Obstructive sleep apnea (adult) (pediatric); J44.9 Chronic obstructive pulmonary disease, unspecified; F17.210 Nicotine dependence, cigarettes, uncomplicated; Z79.84 Long term (current) use of oral hypoglycemic drugs; R09.02 Hypoxemia; Z23 Encounter for immunization
CPT/HCPCS: 36415; 71046; 71275; 80048; 80053; 80202; 82962; 83036; 83605; 84484; 85025; 85027; 85379; 87015; 87040; 87116; 87206; 93005; 93010; 96360; 99285; J1644; J1815; J2543; J3370; J3490; J7030; J7060